=== PATIENT | male | born 1980 | race Caucasian/White ===

== ENCOUNTER 2018-06-28 09:15 | Outpatient (REF) | payer OTHER, SELFPAY ==
[2018-06-28 12:41] LABS: Anion Gap 9.3 mmol/L (3-11); BUN 15 mg/dL (7-18); CO2 27.7 mmol/L (21.0-32.0); CREATININE 0.91 mg/dL (0.70-1.30); Calcium 9.6 mg/dL (8.5-10.1); Chloride 104 mmol/L (98-107); Glucose 113 mg/dL (70-100); Potassium 4.1 mmol/L (3.5-5.1); Sodium 141 mmol/L (136-145)
[2018-06-28 13:17] LABS: Hemoglobin A1C 5.6 % (4.5-6.2)
== END 2018-06-28 09:35 ==
LOC: NCHCN 09:15
PROVIDERS: PCP Nurse Practitioner Family; Visit Provider Nurse Practitioner Family
DX: Z13.1 Encounter for screening for diabetes mellitus (principal); Z83.3 Family history of diabetes mellitus
CPT/HCPCS: 80048; 83036

== ENCOUNTER 2019-12-21 09:21 | Outpatient (REF) | payer MEDICAID, SELFPAY ==
[2019-12-21 21:33] LABS: HCT 43.8 % (40.0-50.0); HGB 14.6 g/dL (13.5-17.5); MCHC 33.3 % (32.0-36.0); MCV 87.1 fL (80-95); MPV 10.4 fL (8.0-11.0); Platelet Count 364 10^3/uL (130-400); RBC 5.03 10^6/uL (4.36-5.78); RDW-SD 38.5 fL; WBC 7.86 10^3/uL (4.4-10.8)
[2019-12-21 22:01] LABS: ALT 26 U/L (16-63); AST 15 U/L (15-37); Albumin 4.1 g/dL (3.4-5.0); Alkaline Phosphatase 63 U/L (46-116); Anion Gap 9.2 mmol/L (3-11); BUN 18 mg/dL (7-18); Bilirubin, Total 0.9 mg/dL (0.2-1.0); CO2 25.8 mmol/L (21.0-32.0); CREATININE 1.04 mg/dL (0.70-1.30); Chloride 105 mmol/L (98-107); Folate 15.2 ng/mL (8.6-20.0); Glucose 139 mg/dL (74-106); Potassium 4.1 mmol/L (3.5-5.1); Sodium 140 mmol/L (136-145); TSH (W/Ref FT4) 0.15 uIU/mL (0.36-3.74); Total Protein 7.2 g/dL (6.4-8.2); Vitamin B12 325 pg/mL (193-986)
[2019-12-21 22:26] LABS: FREE T4 1.16 ng/dL (0.76-1.46)
[2019-12-26 08:56] LABS: Methylmalonic Acid 0.17 nmol/mL (<=0.40)
== END 2019-12-21 09:41 ==
LOC: NCHCN 09:21
PROVIDERS: PCP Nurse Practitioner Family; Visit Provider Nurse Practitioner Family
DX: R51.9 Headache, unspecified (principal); Z51.81 Encounter for therapeutic drug level monitoring; Z87.828 Personal history of other (healed) physical injury and trauma; Z13.29 Encounter for screening for other suspected endocrine disorder
CPT/HCPCS: 80053; 80186; 85027; 82607; 82746; 84439; 84443

== ENCOUNTER 2020-01-14 00:58 | Outpatient (CLI) | payer MEDICAID, SELFPAY ==
--- NOTE | 2020-01-14 | DI.MRI_ITS ---
EXAM: MR BRAIN WO CLINICAL HISTORY: H/O HEAD INJURY,Z87.828,DAILY HEADACHE,R51 TECHNIQUE: Multiplanar multisequence MRI of the brain was performed. COMPARISON: No exams were available for comparison FINDINGS: CEREBRAL PARENCHYMA: No evidence of intracranial hemorrhage, mass effect nor shift of midline structu re. No extraaxial fluid collections. Ventricles are not enlarged nor shifted. There is no significant focal signal abnormality in the cerebellar hemispheres nor within the juancarlos, m idbrain, and thalami. Periventricular white matter there are few tiny nonspecific white matter signal foci evident on the F LAIR sequence. PITUITARY GLAND: No mass nor parasellar abnormality. No obvious abnormality in the cavernous sinuses. FLOW VOIDS: The expected flow void are noted. No evidence of obvious aneurysm nor obvious vascular ma lformation. PARANASAL SINUSES: There is mucosal thickening in the floor of the right maxillary sinus with what ap pears to be a postinflammatory retention cysts. No associated fluid level. Mild mucosal thickening noted in the opposite-left maxillary sinus. Mild mucosal thickening in the other paranasal sinuses. No fluid levels. ORBITS: No obvious findings. IMPRESSION: 1. No significant intracranial findings on this noninfused MRI scan of the brain. There are few tiny nonspecific white matter signal foci, not associated with surrounding edema nor abnormal signal on d iffusion imaging. 2. Paranasal sinus findings as described above, most evident in the right maxillary sinus. No acute appearing fluid level. No bone dehiscence. 3. DATA REPOSITORY:
== END 2020-01-14 01:18 ==
PROVIDERS: PCP Nurse Practitioner Family; Visit Provider Nurse Practitioner Family
DX: R51.9 Headache, unspecified (principal); Z87.828 Personal history of other (healed) physical injury and trauma; J34.89 Other specified disorders of nose and nasal sinuses
CPT/HCPCS: 70551

== ENCOUNTER 2020-01-28 15:48 | Outpatient (CLI) | payer MEDICAID, SELFPAY ==
--- NOTE | 2020-01-28 14:15 | DI.RAD_ITS ---
EXAM: XR WRIST LT COMPLETE CLINICAL HISTORY: L wrist pain. TECHNIQUE: 2D digital imaging was performed. COMPARISON: No exams were available for comparison FINDINGS: BONES: No acute fracture is present. No bony destructive lesion is seen. JOINTS: The carpal bones are normally aligned. SOFT TISSUE: There is a 2 mm linear density in the soft tissues in the volar aspect of the wrist seen on the lateral view. This is of little if any clinical significance. IMPRESSION: No acute fracture or dislocation of the left wrist. Please see the above discussion for complete det ails. DATA REPOSITORY: RADIATION DOSE DELIVERED:
== END 2020-01-28 16:08 ==
PROVIDERS: PCP Nurse Practitioner Family; Visit Provider Physician Assistant
DX: M25.532 Pain in left wrist (principal)
CPT/HCPCS: 73110

== ENCOUNTER 2020-02-22 04:01 | Outpatient (CLI) | payer MEDICAID, SELFPAY ==
[2020-02-23 16:37] LABS: COVID-19 RT-PCR Result NEGATIVE (Negative)
== END 2020-02-22 04:21 ==
PROVIDERS: PCP Nurse Practitioner Family; Visit Provider Student in an Organized Health Care Education/Training Program
DX: Z11.52 Encounter for screening for COVID-19 (principal); Z01.818 Encounter for other preprocedural examination
CPT/HCPCS: U0003

== ENCOUNTER 2020-02-26 06:19 | Day surgery (SDC) | payer MEDICAID, SELFPAY ==
[2020-02-26 06:22] VITALS: BP 125/90; PULSE 88; RESP 18; TEMP 36.9; O2SAT 96
[2020-02-26] MEDS: Lactated Ringers 1,000 ML 80 ML IV (07:03)
--- NOTE | 2020-02-26 07:20 | W.PM.DSUDISC ---
Discharge Plan Disposition Patient Disposition: HOME Condition: Good Discharge Details Reason For Visit: Left wrist ganglion cyst Attending Provider: Miquel Carmona Primary Care Provider: Maryann Jasso Home Meds and New Rx's Prescriptions: New acetaminophen 500 mg tablet 500 mg PO Q6H PRN (Reason: pain) Qty: 60 RF: 2 ibuprofen 600 mg tablet 600 mg PO TID PRN (Reason: pain) Qty: 60 RF: 0 Continued ketoconazole 2 % shampoo 1 applic topical DIRECTED RF: 0 cyclobenzaprine 5 mg tablet 5 mg PO QHS PRNRF: 0 albuterol sulfate [ProAir HFA] 90 mcg/actuation HFA aerosol inhaler 2 puff inhalation Q6H PRNRF: 0 Discharge Instructions Additional Instructions: Ganglion Cyst Excision Discharge Instructions Activity: You should keep the hand elevated as much as possible for the first few days. You may use the other fingers as tolerated but avoid trying to do too much too soon. You may perform light activities with the splint in place. Dressing/Cast: You should keep the dressing on for three days. After three days you may remove the dressing and apply a clean bandaide over the incision. You should keep incision dry. Medications: - You should take Tylenol and Ibuprofen for baseline pain control, both have been prescribed for you. - You may apply ice over the back of your hand if needed. Follow-up: 7-10 days Referrals: Miquel Carmona MD [ [facility]YSICIAN] - Activity:: Elevate Remove Dressings/Wound Care:: 72 hours Shower/Bathe:: 72 hours Diet:: As Tolerated Discharge Orders Discharge Orders: Discharge Order (Routine); Ordered 02/26/20 Ordered By: Kassie Santiago DS: Diagnosis Discharge Diagnosis (1) Ganglion cyst of dorsum of left wrist: Status: Acute
[2020-02-26] MEDS: ceFAZolin 2 GM/50 ML BAG IVPB (07:26)
[2020-02-26] MEDS: Sodium Bicarbonate 50 MEQ/50 ML VIAL (07:34)
[2020-02-26] MEDS: Acetaminophen 325 MG TAB 650 MG PO (08:21)
--- NOTE | 2020-02-26 15:57 | W.PM.OP ---
Date of service: 02/26/20 Time of Service: 08:06 Operative Note Operative Note DATE OF PROCEDURE: 02/26/20 PRE-OP DIAGNOSIS: Left Wrist Mass POST-OP DIAGNOSIS: other (Left Wrist Extensory Tenosynovitis, Left Wrist Osteophyte) PROCEDURE: Left wrist dorsal synovectomy and ostectomy from 2nd CMC joint. SURGEON: Miquel Carmona ANESTHESIA: local ESTIMATED BLOOD LOSS: 5 PATHOLOGY: none sent TOURNIQUET TIME: 0 COMPLICATIONS: None Patient was transported to: same day Patient's condition: stable Indications: I have seen Milton in the clinic for a painful mass about the dorsum of his left wrist. This fluctuates in size based on his activity and also causes pain with increasing activity, especially in direct pressure. There is thought to be a ganglion cyst associated with the prominence of the bone at the second CMC joint. He has been dealing with this for quite some time and given his limitations I did offer excision. I reviewed the risk of the procedure to include recurrence, continued pain and stiffness, damage to nerves and vessels, damage to muscles and tendons peer despite these risk, he elected to proceed. Findings: There is significant mount of fluid seen around the dorsal wrist tendons. A large amount of synovitis was appreciated especially in conjunction with the prominence of the base of the second metacarpal. The synovium was excised although there was no true cyst appreciated. The prominence of the bones of the second CMC joint were removed and smooth. Procedure Description: Milton was greeted in the preoperative holding area where the correct side was identified and marked. The consent was reviewed with the patient and signed. All questions were answered. He was taken back to the operating room. The patient was placed into the supine position on the operating room table with the left arm on an arm board. All bony prominences were well padded. Cefazolin was administered as prophylactic antibiotics.. The left arm was then prepped with Chloraprep and draped in a standard fashion with stockinette and extremity drape. A timeout to confirm correct identity, side and site, procedure, allergies, anesthesia, and medical concerns was performed. The surgical site was marked as a longitudinal incision directly over the the area of prominence of the dorsal wrist, approximately at the second CMC joint. This was confirmed with palpation. This area was then anesthetized with 1% Lidocaine with epinephrine, buffered with sodium bicarbonate. The patient tolerated this well and once the anesthetic had setup, the procedure began. A longitudinal incision was made through skin only, approximately 3cm. The deep tissues were dissected bluntly. Immediately, there is a notable synovitis seen in this area. There was some fluid encountered as well. There is no true cyst appreciated. Crossing branches of the superficial radial nerve were protected and this synovium was resected. After resecting the synovium the prominence of the second CMC joint was quite palpable. Once again, no true cystic structure was appreciated arising from this area. However, there was notable prominence of the base of the second metacarpal. I incised the periosteum over the second metacarpal and then resected this prominence with a rongeur. I used a rasp to smooth down this prominence of bone. No tourniquet was used and there is no significant bleeding encountered. The wound was then thoroughly irrigated. Tissues were closed with 3-0 Vicryl followed by 4-0 Monocryl in a subcuticular fashion. This was reinforced with skin affix skin glue followed by gauze and an Roni wrap. Milton tolerated the procedure well and was returned to the Same Day Surgery area in a stable condition suffering no known complication.
== END 2020-02-26 08:41 | disposition home or self-care (01) ==
PROVIDERS: PCP Nurse Practitioner Family; Visit Provider Student in an Organized Health Care Education/Training Program
PROC: (CPT 26230; principal; 2020-02-26 07:30)
DX: M65.88 Other synovitis and tenosynovitis, other site (principal); M25.732 Osteophyte, left wrist; M25.532 Pain in left wrist
CPT/HCPCS: 26230; 25118; J0690

== ENCOUNTER 2020-04-14 04:26 | Outpatient (CLI) | payer MEDICAID, SELFPAY ==
[2020-04-14 18:53] LABS: Vitamin B12 700 pg/mL (193-986)
[2020-04-14 19:34] LABS: Vitamin D 25 Total 45.8 ng/ml (30-100)
== END 2020-04-14 04:27 | disposition home or self-care (01) ==
LOC: LBO 04:26
PROVIDERS: PCP Nurse Practitioner Family; Visit Provider Internal Medicine Sleep Medicine
DX: R41.3 Other amnesia (principal); E55.9 Vitamin D deficiency, unspecified
CPT/HCPCS: 36415; 82306; 82607

== ENCOUNTER 2020-06-23 02:09 | Outpatient (CLI) | payer MEDICAID, SELFPAY ==
--- NOTE | 2020-06-23 | DI.MRI_ITS ---
Exam(s) MR UPPER JOINT LT WO EXAM: MR UPPER JOINT LT WO CLINICAL HISTORY: CARPAL BOSS LT WRIST,M25.732,CONTINUED PAIN LT WRIST TECHNIQUE: Multiplanar multisequence MRI of the shoulder was performed. COMPARISON: CR XR WRIST 3 VIEW LEFT from 05/08/2020 CR XR WRIST 3 VIEW LEFT from 05/08/2020 FINDINGS: MARROW: There is no evidence of fracture, carpal dislocation, prominent bone contusion nor avascular necrosis. Benign bone island noted in the distal radius subarticular level. With respect to the dorsal osseous structures, there is no evidence of bony excrescence and no abnorm al soft tissue findings to suggest infectious etiology, the apparent recent surgery. There is a small subarticular cyst in the proximal scaphoid adjacent to the scapholunate ligament, th is bone cyst measuring 3 x 3 millimeters. No abnormal signal in the lunate nor in the on nor on the radial side of the radiocarpal joint and there is no significant ulnar variance. Also small cysts no indu in the proximal aspect of the capitate bone. ARTICULATIONS: There are no erosions. No evidence of para-articular ganglion. Mild degenerative vania nges noted at the articulation between base of the 3rd metacarpal and the distal capitate. TFCC: Some intrasubstance signal abnormality but no obvious high-grade tear. There is no fluid in th e distal radioulnar joint. No abnormal intraosseous signal at the level of the ulnar styloid. CARPAL TUNNEL: No abnormal signal in the tendons nor tenosynovitis. No abnormal signal at the level of the median nerve. TENDONS: No evidence of tendon tears or tenosynovitis. OTHER: In the peripheral aspect of the field of view there appears to be a small joint effusion at th e metacarpophalangeal joint of the 4th-ring finger. IMPRESSION: 1. Mild findings as described above. No prominent intraosseous or soft tissue findings. 2. No tendon tears or tenosynovitis. 3. No evidence of para-articular ganglion. DATA REPOSITORY:
== END 2020-06-23 02:29 ==
PROVIDERS: PCP Nurse Practitioner Family; Visit Provider Orthopaedic Surgery
DX: M25.732 Osteophyte, left wrist (principal)
CPT/HCPCS: 73221

== ENCOUNTER 2021-01-06 11:18 | Outpatient (CLI) | payer MEDICAID, SELFPAY ==
[2021-01-06 10:16] LABS: Abs Immature Grans 0.03 10^3/uL (0.0-0.06); Absolute Basophil Count 0.12 10^3/uL (0.0-0.2); Absolute Eosinophil Count 0.51 10^3/uL (0.0-0.7); Absolute Lymphocyte Count 3.19 10^3/uL (1.2-3.4); Absolute Monocyte Count 0.87 10^3/uL (0.1-0.8); Absolute Neutrophil Count 5.19 10^3/uL (1.2-6.7); Basophils % 1.2; Eosinophils % 5.1; HCT 42.8 % (40.0-50.0); HGB 14.4 g/dL (13.5-17.5); Immature Grans % 0.3; Lymphocytes % 32.2; MCH 28.9 pg (27.0-33.0); MCHC 33.6 % (32.0-36.0); MCV 85.9 fL (80-95); MPV 9.7 fL (8.0-11.0); Monocytes % 8.8; Neutrophils % 52.4; Nucleated RBC 0 %; Platelet Count 389 10^3/uL (130-400); RBC 4.98 10^6/uL (4.36-5.78); RDW 12.1 % (11.8-14.1); WBC 9.91 10^3/uL (4.4-10.8)
[2021-01-06 10:35] LABS: ALT 44 U/L (16-63); AST 15 U/L (15-37); Alkaline Phosphatase 67 U/L (46-116); Anion Gap 7.6 mmol/L (3-11); BUN 14 mg/dL (7-18); Bilirubin, Total 0.4 mg/dL (0.2-1.0); CO2 27.4 mmol/L (21.0-32.0); CREATININE 0.9 mg/dL (0.70-1.30); Chloride 105 mmol/L (98-107); Glucose 127 mg/dL (74-106); Magnesium 2.1 mg/dL (1.8-2.4); Potassium 3.8 mmol/L (3.5-5.1); Sodium 140 mmol/L (136-145); Total Protein 7.7 g/dL (6.4-8.2)
[2021-01-06 10:42] LABS: Troponin I < 0.05 ng/mL (<0.06)
== END 2021-01-06 11:19 | disposition home or self-care (01) ==
LOC: LBO 11:19
PROVIDERS: PCP Nurse Practitioner Family; Visit Provider Nurse Practitioner Family
DX: R07.89 Other chest pain (principal)
CPT/HCPCS: 36415; 80053; 83735; 84484; 85025

== ENCOUNTER 2021-05-04 13:19 | Outpatient (REF) | payer MEDICAID, SELFPAY ==
[2021-05-04 17:22] LABS: Bilirubin Negative (Negative); Blood Trace-intact (Negative); Clarity Clear (Clear); Glucose Negative (Negative); Ketones Negative (Negative); Leukocyte Esterase Negative (Negative); Nitrite Negative (Negative); Urobilinogen 0.2 EU/dL (Up TO 0.2); pH 6.5 (5-8)
[2021-05-04 17:30] LABS: Bacteria Few HPF (Negative); C & S Indicated? C&S Done As Ordered; Casts Negative LPF (Negative); Crystals Negative HPF (Negative); Epithelial Cells Negative HPF (Negative); Mucus Negative (Negative); RBC 0-2 HPF (0-2); WBC 0-2 HPF (0-5)
== END 2021-05-04 13:20 | disposition home or self-care (01) ==
LOC: LBN 13:19
PROVIDERS: PCP Nurse Practitioner Family; Visit Provider Nurse Practitioner Family
DX: R35.0 Frequency of micturition (principal)
CPT/HCPCS: 81003; 81015; 87086

== ENCOUNTER 2021-11-09 20:31 | Outpatient (REF) | payer MEDICAID, SELFPAY ==
[2021-11-09 20:24] LABS: Abs Immature Grans 0.02 10^3/uL (0.0-0.06); Absolute Basophil Count 0.08 10^3/uL (0.0-0.2); Absolute Eosinophil Count 0.09 10^3/uL (0.0-0.7); Absolute Lymphocyte Count 1.89 10^3/uL (1.2-3.4); Absolute Monocyte Count 0.73 10^3/uL (0.1-0.8); Absolute Neutrophil Count 6.66 10^3/uL (1.2-6.7); Basophils % 0.8; HCT 43.8 % (40.0-50.0); HGB 14.7 g/dL (13.5-17.5); Immature Grans % 0.2; MCH 28.8 pg (27.0-33.0); MCHC 33.6 % (32.0-36.0); MCV 86 fL (80-95); MPV 10.5 fL (8.0-11.0); Monocytes % 7.7; Neutrophils % 70.3; Platelet Count 393 10^3/uL (130-400); RBC 5.11 10^6/uL (4.36-5.78); RDW 12.2 % (11.8-14.1); RDW-SD 38.5 fL; WBC 9.47 10^3/uL (4.4-10.8)
[2021-11-09 20:26] LABS: ESR 2 mm/hr (0-15)
[2021-11-09 20:40] LABS: ALT 36 U/L (16-63); AST 17 U/L (15-37); Albumin 4.6 g/dL (3.4-5.0); Alkaline Phosphatase 68 U/L (46-116); Anion Gap 11.4 mmol/L (3-11); BUN 12 mg/dL (7-18); Bilirubin, Total 1.1 mg/dL (0.2-1.0); CO2 24.6 mmol/L (21.0-32.0); CREATININE 0.9 mg/dL (0.70-1.30); Calcium 9.3 mg/dL (8.5-10.1); Calculated LDL 114 mg/dL (<100); Chloride 104 mmol/L (98-107); Cholesterol 176 mg/dL (<200); Estimated GFR 108.68 (mL/min/1.73m2); Glucose 96 mg/dL (74-106); HDL Cholesterol 52 mg/dL (40-60); Potassium 4.1 mmol/L (3.5-5.1); Sodium 140 mmol/L (136-145); TSH (W/Ref FT4) 0.27 uIU/mL (0.36-3.74); Total Protein 7.8 g/dL (6.4-8.2); Triglyceride 53 mg/dL (<150)
[2021-11-09 21:01] LABS: C-Reactive Protein 0.11 mg/dL (0.0-0.3)
[2021-11-10 18:01] LABS: Rheumatoid Factor <8.6 IU/mL (<12.0)
[2021-11-11 10:13] LABS: Cyclic Citrullinated Peptide <2.5 U/mL (<5.0)
[2021-11-11 11:14] LABS: Lyme Ab w Rflx to Lyme Confirm Negative (Negative)
[2021-11-11 14:56] LABS: ANA Interpretation Negative (Negative)
[2021-11-13 09:07] LABS: Anaplasma phagocytophilum Negative (Negative); B. miyamotoi PCR Negative (Negative); Babesia divergens/MO-1 Negative (Negative); Babesia duncani Negative (Negative); Babesia microti Negative (Negative); Ehrlichia chaffeensis Negative (Negative); Ehrlichia ewingii/canis Negative (Negative); Ehrlichia muris eauclairensis Negative (Negative)
== END 2021-11-09 20:32 | disposition home or self-care (01) ==
LOC: NCHCN 20:31
PROVIDERS: PCP Nurse Practitioner Family; Visit Provider Nurse Practitioner Family
DX: M25.59 Pain in other specified joint (principal); Z13.220 Encounter for screening for lipoid disorders; Z13.29 Encounter for screening for other suspected endocrine disorder; Z00.00 Encounter for general adult medical examination without abnormal findings
CPT/HCPCS: 80053; 80061; 85652; 86200; 87798; 84439; 84443; 85025; 86038; 86140; 86431; 86618

== ENCOUNTER 2022-03-22 00:25 | Outpatient (CLI) | payer MEDICAID, SELFPAY ==
--- NOTE | 2022-03-22 13:55 | DI.RAD_ITS ---
Exam(s) XR KNEE RT 3V AP,LAT,VIKRAM EXAM: XR KNEE RT 3V AP,LAT,VIKRAM CLINICAL HISTORY: bilat knee pain, m25.561. TECHNIQUE: 2D digital imaging was performed. Three views. COMPARISON: No exams were available for comparison FINDINGS: BONES: No acute fracture is present. No bony destructive lesion is seen. JOINTS: Joint spaces are maintained. No significant periarticular spurring.. No joint effusion is s een. SOFT TISSUE: Normal. IMPRESSION: Unremarkable radiographs of the right knee. DATA REPOSITORY: RADIATION DOSE DELIVERED:
--- NOTE | 2022-03-22 13:55 | DI.RAD_ITS ---
Exam(s) XR ELBOW LT COMPLETE EXAM: XR ELBOW LT COMPLETE CLINICAL HISTORY: pain,m25.522. TECHNIQUE: 2D digital imaging was performed. Three views. COMPARISON: No exams were available for comparison FINDINGS: BONES: No acute fracture is present. No bony destructive lesion is seen. JOINTS: The elbow is normally aligned. No joint effusion is seen. SOFT TISSUE: Normal. IMPRESSION: Unremarkable radiographs of the left elbow. DATA REPOSITORY: RADIATION DOSE DELIVERED:
--- NOTE | 2022-03-22 13:55 | DI.RAD_ITS ---
Exam(s) XR KNEE LT 3V AP,LAT,VIKRAM EXAM: XR KNEE LT 3V AP,LAT,VIKRAM CLINICAL HISTORY: pain,m25.562. TECHNIQUE: 2D digital imaging was performed. Three views. COMPARISON: No exams were available for comparison FINDINGS: BONES: No acute fracture is present. No bony destructive lesion is seen. JOINTS: The joint spaces are maintained. No joint effusion is seen. SOFT TISSUE: Normal. IMPRESSION: Normal radiographs of the left knee. DATA REPOSITORY: RADIATION DOSE DELIVERED:
--- NOTE | 2022-03-22 14:01 | DI.RAD_ITS ---
Exam(s) XR ELBOW RT COMPLETE EXAM: XR ELBOW RT COMPLETE CLINICAL HISTORY: pain,m25.521. TECHNIQUE: 2D digital imaging was performed. Three views. COMPARISON: CR XR ELBOW LT COMPLETE from 03/22/2022 FINDINGS: BONES: No acute fracture is present. No bony destructive lesion is seen. JOINTS: The elbow is normally aligned. No joint effusion is seen. SOFT TISSUE: Normal. IMPRESSION: Unremarkable radiographs of the right elbow. DATA REPOSITORY: RADIATION DOSE DELIVERED:
== END 2022-03-22 00:45 ==
LOC: DI 00:25
PROVIDERS: PCP Nurse Practitioner Family; Visit Provider Nurse Practitioner Family
DX: M25.521 Pain in right elbow (principal); M25.522 Pain in left elbow; M25.561 Pain in right knee; M25.562 Pain in left knee
CPT/HCPCS: 73562; 73080

== ENCOUNTER 2023-07-01 10:05 | Day surgery (SDC) | payer BC, SELFPAY ==
--- NOTE | 2023-06-30 20:40 | W.PM.DSUDISC ---
Date of service: 07/01/23 Time of Service: 12:15 Discharge Plan Disposition Patient Disposition: Home Condition: Good Discharge Details Reason For Visit: screening colonoscopy Attending Provider: Stevie Cardenas Primary Care Provider: Jose Angel Hernandez Home Meds and New Rx's Prescriptions: Continued ketoconazole 2 % shampoo 1 applic topical DIRECTED albuterol sulfate [ProAir HFA] 90 mcg/actuation HFA aerosol inhaler 2 puff inhalation Q6H PRN (Reason: shortness of breath or wheezing) Qty: 8.5 0RF omeprazole 20 mg capsule,delayed release(DR/EC) 20 mg PO DAILY Qty: 90 0RF cyclobenzaprine 5 mg tablet 5 mg PO QHS PRN (Reason: muscle spasm) Qty: 30 0RF lorazepam 0.5 mg tablet 0.5 mg PO DAILY PRN (Reason: anxiety) Qty: 20 0RF acetaminophen 500 mg tablet 500 mg PO Q6H PRN (Reason: pain) Qty: 60 2RF ibuprofen 600 mg tablet 600 mg PO TID PRN (Reason: pain) Qty: 60 0RF Discontinued bisacodyl [Dulcolax (bisacodyl)] 5 mg tablet,delayed release (DR/EC) 5 mg PO ONCE Qty: 4 0RF Rx Instructions: Take per colonoscopy instructions provided by ordering providers office polyethylene glycol 3350 17 gram/dose powder 17 g PO ONCE Qty: 238 0RF Rx Instructions: Take per colonoscopy instructions provided by ordering providers office Discharge Instructions Instructions: Colorectal Polyps (GEN) Additional Instructions: Mercedes, we are able to complete your colonoscopy today without any issues. Your prep was outstanding and I could see everything just fine. I did find to remove 3 polyps. 2 of these were extremely small, the other was medium in size. None of them have any features that are particularly worrisome to the naked eye. All will be tested to determine the exact nature of the polyps, and once we have that information, the office will be in touch regarding the timing of your next colonoscopy. If you have any questions or issues in the meantime, please do not hesitate to call or ask at any point. 1. If tolerated, consume a soft, low fiber diet for 1-2 days. 2[address] Do not drive, drink alcohol, operate machinery, make critical decisions, or do activities that require coordination or balance for 24 hours. 3. Because air was put into your colon during the procedure, expelling air from your rectum (passing gas or farting) is normal. 4. You may not have a bowel movement for 1-3 days because of the colonoscopy prep. This is normal. 5. Go directly to the emergency room if you notice any of the following: Develop chills (warm to touch), or if you have a thermometer and your temperature is above 101 Difficulty breathing or difficultly swallowing Persistent vomiting Severe abdominal pain, other than gas cramps Severe chest pain Black, tarry stools Any bleeding ? exceeding one tablespoon 6. Call your physician if the site where your intravenous was started becomes red, swollen, painful, and warm to touch. 7. Your physician has reviewed your pre-procedure medications. Please continue to take those medications as previously ordered. You will be given specific information/education regarding any changes to your medications before leaving. Activity:: Activity as Tolerated Diet:: As Tolerated Discharge Orders Discharge Orders: Discharge Order (Routine); Ordered 06/30/23 Ordered By: Stevie Cardenas DS: Diagnosis Discharge Diagnosis (1) Encounter for screening colonoscopy: Status: Acute Asessment and Plan: Follow-up on polypectomy results
--- NOTE | 2023-06-30 20:42 | W.COLOREPORT ---
Date of service: 07/01/23 Time of Service: 12:17 Colonoscopy Report Date of procedure: 07/01/23 Pre-op diagnosis general: screening colonoscopy Post-op diagnosis procedure note: other (Colon polyps) Procedure: colonoscopy with polypectomy Surgeon: Stevie Cardenas Anesthesia Type: General:No Airway Estimated blood loss (mL): 5 Pathology: other (0.5 cm polyp at 65 cm, 0.25 cm polyp at 35 cm, 0.25 cm polyp at 15 cm) Complications: None Disposition: same day Indications: Milton is a 43 year old man who needs his first screening colonoscopy for routine health maintenance. Prep: Miralax/Dulcolax Procedure Start Time: 11:50 Procedure End Time: 12:02 Retraction Time: 10 Findings: 0.5 cm polyp at 65 cm, 0.25 cm polyp at 35 cm, 0.25 cm polyp at 15 cm Procedure Description: After the induction of monitored anesthetic care, and with the patient in left lateral decubitus position, I began by performing an external anorectal exam.? Perineum and skin were normal, as was the anal verge.? There was no evidence of external hemorrhoids.? Next, I performed a digital rectal exam.? I did not appreciate any abnormal findings.? Next, I advanced a colonoscope into the rectal vault.? I performed retroflexion.? This appeared normal.? Using insufflation, I then advanced the colonoscope beyond the rectal folds and into the sigmoid colon before advancing towards the cecum.? The quality of the prep was outstanding.? The scope was noted to be in the cecum by identification of the ileocecal valve and appendiceal orifice.? I then began withdrawing the colonoscope using repeated irrigation as necessary for full evaluation of the colonic mucosa. Around 65 cm from the anus was a 0.5 cm flat polyp. This was removed in piecemeal with cold forceps. There was minimal bleeding. I also found polyps at 35 cm from the anus and 25 cm from the anus. Both of these were flat and quite small. I removed both of these with cold forceps as well. There was minimal bleeding at the sites. Once the scope was withdrawn to the level of the rectum, great care was taken to examine portions of the rectal folds.? Finally, the scope was withdrawn and the patient was brought to the same-day surgery recovery unit as the anesthetic wore off. ?The findings and instructions were shared with the patient prior to discharge. [place] Bowel Prep [place] Bowel Prep Right Colon: 3 Left Colon: 3 Transverse Colon: 3 Total Score: 9
[2023-07-01 10:42] VITALS: BP 121/80; PULSE 89; RESP 20; TEMP 36.9; O2SAT 99
[2023-07-01] MEDS: Lactated Ringers 1,000 ML 80 ML IV (10:57)
--- NOTE | 2023-07-01 11:32 | W.ANESPRE ---
General Info Date of Service Date Performed: 07/01/23 Height: 5 ft 8.5 in Weight: 80.9 kg Body Mass Index (BMI): 26.7 Surgical Procedure: Operation Date: 07/01/23 11:50 Proposed Procedure Side Surgeon p Colonoscopy Stevie Cardenas MD Actual Procedure Side Surgeon p Colonoscopy Not Applicable Stevie Cardenas MD Meds Allergies and Home Medications Allergies Allergy/AdvReac Type Severity Reaction Status Date / Time mold Allergy Intermediate Hives Verified 07/01/23 10:39 pollen extracts Allergy Intermediate Hives Verified 07/01/23 10:39 ragweed pollen Allergy Intermediate Hives Verified 07/01/23 10:39 Environmental Allergy Intermediate Hives Uncoded 07/01/23 10:39 Home Medication Medication Instructions Recorded ketoconazole 2 % shampoo 1 applic topical DIRECTED 12/24/19 acetaminophen 500 mg tablet 500 mg PO Q6H PRN pain #60 tabs 02/26/20 ibuprofen 600 mg tablet 600 mg PO TID PRN pain #60 tabs 02/26/20 albuterol sulfate 90 mcg/actuation 2 puff inhalation Q6H PRN 07/16/22 aerosol inhaler (ProAir HFA) shortness of breath or wheezing #8.5 grams omeprazole 20 mg capsule,delayed 20 mg PO DAILY #90 caps 03/25/23 release cyclobenzaprine 5 mg tablet 5 mg PO QHS PRN muscle spasm #30 05/24/23 tabs lorazepam 0.5 mg tablet 0.5 mg PO DAILY PRN anxiety #20 06/06/23 tabs Current Visit Medications: Current Medications Generic Name Dose Route Start Last Admin Trade Name Sandipq PRN Reason Stop Dose Admin Hyoscyamine Sulfate 0.125 mg 06/30/23 20:43 Hyoscyamine 0.125 Mg Sl/Oral/Chew SL 07/30/23 20:42 DIRECTED PRN Ringer's Solution 1,000 mls @ 80 mls/hr 07/01/23 06:00 07/01/23 10:57 IV 07/01/23 23:59 80 mls/hr INFUSION MIRIAM Administration IV Miscellaneous Supplies 1 each 07/01/23 06:00 Iv Access IV 07/01/23 23:59 DIRECTED MIRIAM Ondansetron HCl 4 mg 06/30/23 20:43 Ondansetron 4 Mg/2 Ml Vial IVP 07/30/23 20:42 Q4H PRN PRN Nausea / Vomiting Sodium Chloride 0 ml 07/01/23 06:00 Normal Saline Flush 10 Ml Syr IV 07/01/23 23:59 PRN PRN Sodium Chloride 0 ml 07/01/23 06:00 Normal Saline 10 Ml Vial IJ 07/01/23 23:59 DIRECTED PRN Sterile Water 0 ml 07/01/23 06:00 Water,Injection,Sterile 10 Ml Vial IJ 07/01/23 23:59 DIRECTED PRN PFSH Active Problems Active Problems: Problem Status Onset Code Encounter for screening colonoscopy Z12.11 Globus sensation R09.A2 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, G89.29 Bilateral elbow joint pain M25.521, M25.522 Bilateral knee pain M25.561, M25.562 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 states he us extra sensitive to anesthesia Surgical History Surgical History History of tonsillectomy Tobacco Smoking/Tobacco Use Status: Former Tobacco Use Passive smoking exposure: Yes Second hand exposure: Yes Alcohol Alcohol Intake: current Alcohol intake frequency: a few times a week Alcohol type: beer, wine and hard liquor Substance Use Substance use: Occasionally Substance use type: marijuana Counseling provided: none Vital Signs and Lab Results Vital Signs Most Recent Vital Signs in EMR: Most Recent Vital Signs Temp Pulse Resp BP Pulse Ox 36.9 C 89 20 121/80 99 07/01/23 10:42 07/01/23 10:42 07/01/23 10:42 07/01/23 10:42 07/01/23 10:42 Lab Results Blood Type / Crossmatch: No Data to Display Complete Blood Count: No Data to Display Complete Metabolic Panel: No Data to Display Liver Function Panel: No Data to Display Coagulation Panel: No Data to Display Cardiac Panel: No Data to Display Arterial Blood Gas: No Data to Display Venous Blood Gas: No Data to Display Pancreas Panel: No Data to Display Thyroid Panel: No Data to Display Infectious Disease: No Data to Display Blood Cultures: No Data to Display Toxicology Panel: No Data to Display Anesthesia Assessment and Plan Anesthesia History Personal History: No History of General Anesthesia Family History: No Family History of Anesthesia Complications Exercise Tolerance Exercise Tolerance: Metabolic Equivalents<4 Pertinent Negatives Pertinent Negatives: No Symptoms of GERD Cardiac & Pulmonary Exam Cardiac Exam: Normal S1/S2 Heart Sounds Pulmonary Exam: Clear Bilateral Breath Sounds Implantable Cardiac Device Does patient have a Pacemaker or an ICD?: No Airway Exam Known Difficult Airway: No Mallampati Class: 2 Mouth Opening: Normal (> 3cm) Thyromental Distance: Greater than 3 cm Facial Hair: Full Barrow Neck Range of Motion: Full ROM Neck Circumference: Normal Teeth Condition: Normal Dentition ASA Classification ASA Score: ASA 2 Emergency Case?: No NPO Status NPO Status: NPO Clears >2 hours, Solids >8 hours Anesthesia Plan Resuscitation Status: Full Code Anesthesia Technique: General Anesthesia Airway Planned: Natural Airway Monitors Used: Standard Monitors
[2023-07-01 11:33] VITALS: BMI 26.7
--- NOTE | 2023-07-01 11:55 | BOWEL_PTH ---
PATIENT: Milton Lopez LOC: [facility] U#:[id number] AGE/SX: 43/M ROOM: RE07/01/[address]: Stevie Cardenas MD : 1980 BED: DIS: 07/01/2023 SPEC #: [id number] RECD: 07/01/23 13:16 STATUS: DURGA RE #: [id number] GEOVANI: 07/01/23 11:[address]: Stevie Cardenas DEPT: Surgical Specimen RECD BY: Gaby Gotti ENTERED: 07/01/23 13:18 SP TYPE: Bowel OTHR DR: Jose Angel Roth DNP Tissues: 1 - BIOPSY BOWEL 2 - BIOPSY BOWEL 3 - BIOPSY BOWEL Procedures: GROSS AND MICRO LEVEL 4 Comments: [id number]
[2023-07-01 12:09] VITALS: BP 110/74; PULSE 94; RESP 16; TEMP 36.4; O2SAT 97
--- NOTE | 2023-07-01 12:16 | W.ANESPOSTOP ---
Postoperative Evaluation Date, Time and Location Date Performed: 07/01/23 Time Performed: 12:16 Patient Location: Day Surgery Unit Vital Signs Most Recent Imported Vital Signs: Most Recent Vital Signs Temp Pulse Resp BP Pulse Ox 36.4 C L 94 H 16 110/74 97 07/01/23 12:09 07/01/23 12:09 07/01/23 12:09 07/01/23 12:09 07/01/23 12:09 Pain Score Most Recent Pain Score: Most Recent Pain Score Pain Level 0 07/01/23 10:42 Assessment Mental Status: Awake (Alert & Oriented to Patient Baseline) Airway and Respiratory Function: Patent airway with normal (patient baseline) respiratory exam Cardiovascular Function: Hemodynamically Stable Hydration Status: Adequately Hydrated Nausea & Vomiting: No Nausea or Vomiting Pain: Pt. Denies Any Pain Peripheral Nerve Block: Patient did not receive a nerve block
[2023-07-01 12:31] VITALS: BP 116/90; PULSE 82; RESP 16; TEMP 36.6; O2SAT 99
== END 2023-07-01 13:07 | disposition home or self-care (01) ==
LOC: SUR 10:06
PROVIDERS: PCP Nurse Practitioner Family; Visit Provider Surgery
PROC: 0DJD8ZZ Inspection of Lower Intestinal Tract, Via Natural or Artificial Opening Endoscopic (ICD-10-PCS; CPT 45378; principal; 2023-07-01 11:45)
DX: Z12.11 Encounter for screening for malignant neoplasm of colon (principal); K63.5 Polyp of colon
CPT/HCPCS: 45380; 88305; J2001; J2704

== ENCOUNTER 2024-01-04 13:30 | Outpatient (CLI) | payer BC, SELFPAY ==
--- NOTE | 2024-01-04 14:33 | DI.RAD_ITS ---
Exam(s) XR CERVICAL SPINE COMP 4-5V EXAM: XR CERVICAL SPINE COMP 4-5V CLINICAL HISTORY: M54.2 Cervicalgia pain. TECHNIQUE: 2D digital imaging was performed. COMPARISON: No exams were available for comparison FINDINGS: Six views. No evidence of fracture, listhesis, nor offset of the spinal laminar line. There is chronic disc space narrowing at C3-4 level as well as anterior osseous lipping. There is al so mild chronic disc space narrowing at C5-6 and more prominent chronic narrowing at C5 6-7 disc spac e level. On the oblique views there are Luschka joint osteophytes noted bilaterally at C6-7 level an d on the right side at C5-6 level. Facet joints appear unremarkable with minimal degenerative change s. There are no cervical ribs. No osseous lesions. Bone density is normal. IMPRESSION: Multilevel chronic degenerative disc disease at C3-4, C5-6, and C6-7 levels. DATA REPOSITORY: RADIATION DOSE DELIVERED:
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
== END 2024-01-04 13:50 ==
LOC: DI 13:31
PROVIDERS: PCP Nurse Practitioner Family; Visit Provider Nurse Practitioner Family
DX: M50.121 Cervical disc disorder at C4-C5 level with radiculopathy (principal); M25.512 Pain in left shoulder
CPT/HCPCS: 72050; 73000